=== PATIENT | female | born 1975 | race Caucasian/White ===

== ENCOUNTER 2018-02-05 21:04 | Emergency (ER) | payer SELFPAY ==
[~2018-02-05] VITALS: Ht 177.8 cm; Wt 125.6 kg
[~2018-02-05 21:04] MED LIST: NITR100C6 PO; PREN-118 PO
[2018-02-05 23:04] VITALS: BP 112/69
[2018-02-05] MEDS ORDERED: acetaminophen 325mg tablet PO ONE (23:20)
[2018-02-05] MEDS ORDERED: ACET-2119 PO (23:21)
== END 2018-02-06 00:19 | disposition home or self-care (01) ==
LOC: ER 21:05
DX: M23.92 Unspecified internal derangement of left knee (principal); Z56.0 Unemployment, unspecified; Z79.899 Other long term (current) drug therapy
CPT/HCPCS: 29505; 73564; 99284

== ENCOUNTER 2020-01-03 22:58 | Emergency (ER) | payer MEDICAID ==
[~2020-01-03] VITALS: Ht 175.3 cm; Wt 81.8 kg
[2020-01-04 00:27] LABS: URINE HCG NEGATIVE (NEG)
[2020-01-04 00:42] VITALS: BP 126/90
== END 2020-01-04 00:44 | disposition home or self-care (01) ==
LOC: ER 22:59
DX: F41.9 Anxiety disorder, unspecified (principal); R51 Headache; F32.9 Major depressive disorder, single episode, unspecified; Z56.0 Unemployment, unspecified; Z79.899 Other long term (current) drug therapy
CPT/HCPCS: 81025; 99283

== ENCOUNTER 2020-04-03 18:30 | Emergency (ER) | payer MEDICAID ==
[~2020-04-03] VITALS: Ht 175.3 cm; Wt 102.7 kg
[2020-04-03 18:45] VITALS: BP 120/80
[2020-04-03] MEDS ORDERED: TETanus/Pertussis (Acell)/Diphther VAC/PF (Tdap-Adult) 0.5ml syringe IMVAC ONE (18:50)
[2020-04-03] MEDS ORDERED: LACT1CAP60 PO (19:12)
[2020-04-03] MEDS ORDERED: DOXY100C76 PO (19:12)
[2020-04-03] MEDS ORDERED: CefTRIAXone 1000mg IM Kit (w/lidocaine diluent) IM ONE (19:15)
--- NOTE | 2020-04-03 19:54 | NUR ---
DRESSING APPLIED TO WOUND . SPEECH LANGUAGE PATHOLOGIST PRN EDWARDS I & d RIGHT BUTTOCK ABCESS. SITE LANCED AND PACKED WITH 1/4 " IDOFORM . 4X4 PLACED ON TOP HELD IN PLACE WITH PAPER TAPE . PT TOLERATED APPROPIRATELY
== END 2020-04-03 20:15 | disposition home or self-care (01) ==
LOC: ER 18:31
DX: T63.301A Toxic effect of unspecified spider venom, accidental (unintentional), initial encounter (principal); L02.31 Cutaneous abscess of buttock; Z56.0 Unemployment, unspecified; Z79.899 Other long term (current) drug therapy; Y92.89 Other specified places as the place of occurrence of the external cause
CPT/HCPCS: 10060; 96372; 99283; J0696

== ENCOUNTER 2020-04-04 21:46 | Emergency (ER) | payer MEDICAID ==
[~2020-04-04] VITALS: Ht 175.3 cm; Wt 102.3 kg
[~2020-04-04 21:46] MED LIST changes: +DOXY100C76 PO; +LACT1CAP60 PO
[2020-04-04 22:12] VITALS: BP 111/72
[2020-04-04] MEDS ORDERED: HYDROcodone/acetaminophen 5mg/325mg tablet PO ONE (23:00)
[2020-04-04] MEDS ORDERED: cephalexin 250mg capsule PO ONE (23:10)
[2020-04-04] MEDS ORDERED: sulfamethoxazole/trimethoprim DS (800/160mg) tablet PO ONE (23:10)
[2020-04-05] MEDS ORDERED: SULF1TAB49 PO (00:16)
[2020-04-05] MEDS ORDERED: CEPH500C5 PO (00:16)
== END 2020-04-05 00:28 | disposition home or self-care (01) ==
LOC: ER 21:47
DX: L03.317 Cellulitis of buttock (principal); L02.31 Cutaneous abscess of buttock; Z59.0 Homelessness; Z79.2 Long term (current) use of antibiotics; Z79.899 Other long term (current) drug therapy
CPT/HCPCS: 87070; 99284

== ENCOUNTER 2020-04-05 18:05 | Emergency (ER) | payer MEDICAID ==
[~2020-04-05] VITALS: Ht 175.3 cm; Wt 90.9 kg
[~2020-04-05 18:05] MED LIST changes: +CEPH500C5 PO; +SULF1TAB49 PO
[2020-04-05 20:17] VITALS: BP 119/77
== END 2020-04-05 20:19 | disposition home or self-care (01) ==
LOC: ER 18:06
DX: L02.31 Cutaneous abscess of buttock (principal); Z48.00 Encounter for change or removal of nonsurgical wound dressing; Z79.899 Other long term (current) drug therapy
CPT/HCPCS: 99281

== ENCOUNTER 2020-04-06 18:49 | Emergency (ER) | payer MEDICAID ==
[~2020-04-06] VITALS: Ht 175.3 cm; Wt 102.2 kg
[2020-04-06 18:52] VITALS: BP 127/61
== END 2020-04-06 19:58 | disposition home or self-care (01) ==
LOC: ER 18:49
DX: L02.31 Cutaneous abscess of buttock (principal); Z56.0 Unemployment, unspecified; Z79.2 Long term (current) use of antibiotics; Z79.899 Other long term (current) drug therapy
CPT/HCPCS: 99281; 99282

== ENCOUNTER 2020-04-07 20:03 | Emergency (ER) | payer MEDICAID ==
[~2020-04-07] VITALS: Ht 175.3 cm; Wt 102.2 kg
[2020-04-07 22:01] VITALS: BP 116/76
== END 2020-04-07 22:02 | disposition home or self-care (01) ==
LOC: ER 20:04
DX: L02.31 Cutaneous abscess of buttock (principal); R50.9 Fever, unspecified; Z56.0 Unemployment, unspecified; Z79.2 Long term (current) use of antibiotics; Z79.899 Other long term (current) drug therapy
CPT/HCPCS: 99281

== ENCOUNTER 2020-04-08 20:37 | Emergency (ER) | payer MEDICAID ==
[~2020-04-08] VITALS: Ht 175.3 cm; Wt 102.3 kg
[2020-04-08 21:50] VITALS: BP 104/63
== END 2020-04-08 21:52 | disposition home or self-care (01) ==
LOC: ER 20:37
DX: L02.31 Cutaneous abscess of buttock (principal); Z79.2 Long term (current) use of antibiotics; Z79.899 Other long term (current) drug therapy; Z56.0 Unemployment, unspecified
CPT/HCPCS: 99281

== ENCOUNTER 2020-04-09 13:40 | Day surgery (SDC) | payer MEDICAID ==
[2020-04-09] MEDS ORDERED: LIDOcaine 2% 5ml jelly ONE (14:48)
== END 2020-04-09 15:46 | disposition home or self-care (01) ==
LOC: WOUND CARE 13:40
PROVIDERS: ATTEND Nurse Practitioner Family
DX: L98.412 Non-pressure chronic ulcer of buttock with fat layer exposed (principal); Z79.899 Other long term (current) drug therapy; Z79.2 Long term (current) use of antibiotics
CPT/HCPCS: 97597

== ENCOUNTER 2022-09-20 05:00 | Emergency (ER) | payer MEDICAID, OTHER ==
[~2022-09-20] VITALS: Ht 175.3 cm; Wt 113.0 kg
[~2022-09-20 05:00] MED LIST changes: -CEPH500C5 PO; -DOXY100C76 PO; -SULF1TAB49 PO
[2022-09-20 07:35] VITALS: BP 135/85
== END 2022-09-20 07:38 | disposition home or self-care (01) ==
LOC: ER 05:01
DX: S09.90XA Unspecified injury of head, initial encounter (principal); F07.81 Postconcussional syndrome; Z79.899 Other long term (current) drug therapy; Z59.00 Homelessness unspecified; W19.XXXA Unspecified fall, initial encounter; Y93.89 Activity, other specified; Y92.89 Other specified places as the place of occurrence of the external cause; Y99.8 Other external cause status
CPT/HCPCS: 70450; 99284